=== PATIENT | female | born 1950 | race Caucasian/White ===

== ENCOUNTER 2019-02-20 09:56 | Emergency (ER) | payer MEDICARE, MEDICAID ==
[~2019-02-20] VITALS: Ht 175.3 cm; Wt 68.0 kg
[2019-02-20] MEDS ORDERED: Isovue-300 100ml vial INJ PRN (10:15)
[2019-02-20] MEDS ORDERED: LACTULOSE20 GM/301 ORAL (10:22)
[2019-02-20] MEDS ORDERED: LINZESS290 MCG PO (10:22)
[2019-02-20] MEDS ORDERED: COLACE100 MG ORAL (10:22)
[2019-02-20] MEDS ORDERED: HYDROCHLOROTH12.5 M2 ORAL (10:22)
[2019-02-20] MEDS ORDERED: ATORVASTATIN CA20 MG ORAL (10:22)
[2019-02-20] MEDS ORDERED: LISINOPRIL5 MG ORAL (10:22)
[2019-02-20] MEDS ORDERED: ASPIRIN81 MG ORAL (10:22)
--- NOTE | 2019-02-20 10:27 | NUR ---
ED Nurse Note: pt walked in c/o balck tarry loose all for 3 months. urine sent
[2019-02-20 10:29] VITALS: BP 160/80
[2019-02-20 10:36] LABS: APPEARANCE,URINE CLEAR; BILIRUBIN, URINE NEGATIVE (NEGATIVE); COLOR,URINE PALE YELLOW; GLUCOSE, URINE (UA) NEGATIVE (NEGATIVE); KETONES,URINE NEGATIVE (NEGATIVE); LEUKOCYTE ESTERASE ,URINE 1+ (NEGATIVE); NITRITE,URINE NEGATIVE (NEGATIVE); PH,URINE 6 (4.5-8.0); PROTEIN,URINE 1+ (NEGATIVE); UROBILINOGEN,URINE NORMAL MG/DL (0.0-1.0)
--- NOTE | 2019-02-20 10:41 | NUR ---
ED Nurse Note: blood sent ivf up infusing pt on monitor awaiting imaging.
--- NOTE | 2019-02-20 10:47 | NUR ---
ED Nurse Note: blood sent to lab
[2019-02-20 10:55] LABS: BASOPHILS % (AUTO) 1.3 % (0.0-2.0); EOSINOPHILS % (AUTO) 2.5 % (0.0-3.0); HEMATOCRIT 48.4 % (37.0-47.0); HEMOGLOBIN 16.6 G/DL (12.0-16.0); LYMPHOCYTES % (AUTO) 28.1 % (20.0-45.0); MEAN CORPUSCULAR VOLUME 92 FL (80-99); MONOCYTES % (AUTO) 6.4 % (1.0-10.0); NEUTROPHILS % (AUTO) 61.7 % (45.0-75.0); PLATELET COUNT 353 K/UL (150-450); RED BLOOD COUNT 5.26 M/UL (4.20-5.40); RED CELL DISTRIBUTION WIDTH 11.9 % (11.6-14.8); WHITE BLOOD COUNT 11.5 K/UL (4.8-10.8)
[2019-02-20 11:03] LABS: ANION GAP 7 mmol/L (5-15); BLOOD UREA NITROGEN 8 mg/dL (7-18); CALCIUM 9.6 MG/DL (8.5-10.1); CARBON DIOXIDE 29 MMOL/L (21-32); CHLORIDE 97 MMOL/L (98-107); CREATININE 0.7 MG/DL (0.55-1.30); POTASSIUM 3.5 MMOL/L (3.5-5.1); SODIUM 133 MMOL/L (136-145)
[2019-02-20 11:06] LABS: ALANINE AMINOTRANSFERASE 21 U/L (12-78); ALBUMIN 3.5 G/DL (3.4-5.0); ASPARTATE AMINO TRANSFERASE 16 U/L (15-37); INR 0.9 (0.9-1.1)
[2019-02-20 11:19] LABS: ALKALINE PHOSPHATASE 69 U/L (46-116); BILIRUBIN,TOTAL 0.3 MG/DL (0.2-1.0)
[2019-02-20 11:20] LABS: ALBUMIN/GLOBULIN RATIO 0.9 (1.0-2.7)
[2019-02-20] MEDS ORDERED: Albuterol ud Inhalation HHN ONE (11:30)
[2019-02-20] MEDS ORDERED: Ipratropium 0.02% Inh Soln 2.5ml UD HHN ONE (11:30)
--- NOTE | 2019-02-20 12:27 | Diagnostic Imaging Report ---
Clinical Indication: Lower abdominal pain x4 months Technique: No oral contrast utilized, per emergency room physician request IV administration nonionic contrast. Venous phase spiral acquisition obtained through the abdomen and pelvis. Multiplanar reconstructions were generated. Total dose length product 780.18 mGycm. CTDIvol(s) 16.82 mGy. Dose reduction achieved using automated exposure control Comparison: none Findings: Lack of enteric contrast limits assessment of the GI tract. The appendix is normal. There is distal colonic diverticulosis. No evidence of diverticulitis. No small bowel distention. No free or loculated intraperitoneal gas or fluid is evident. Distal esophagus, stomach, duodenum are unremarkable. The liver, gallbladder, bile ducts, pancreas, spleen, adrenals are unremarkable. There is a right interpolar region calyceal calculus demonstrated, measures 5 mm diameter. There is mild right hydronephrosis and mild ectasia of the right ureter. However, no ureteral calculus is demonstrated. No bladder calculi are demonstrated. A 4 mm calculus is seen in the left upper pole collecting system. No left ureteral calculi or hydronephrosis demonstrated. There is a subcentimeter low-attenuation lesion in the left kidney which is too small to characterize, most likely benign simple cyst. The bladder is unremarkable. No pelvic mass or adenopathy. The uterus and adnexal structures appear unremarkable. The included lung bases demonstrate a 5 mm subpleural nodule projecting just above the dome of the right hemidiaphragm. The bones demonstrate degenerative spondylosis changes. There is very slight infiltration of the subcutaneous fat of the left hip/buttock region and slight edema of the bilateral buttock subcutaneous fat Impression: Mild right hydronephrosis and hydroureter, without definite obstructive lesion. Presence of a right renal calyceal calculus raises possibility that this is due to recent stone passage, but other etiologies possible. Correlate with clinical findings Nonobstructive left renal calculus demonstrated as well Limited assessment of the GI tract, due to lack of enteric contrast demonstration. No definite acute GI tract process Other findings as noted, including slight edema of the bilateral buttock subcutaneous fat and infiltration of the left hip region subcutaneous fat, degenerative spondylosis, right basilar subpleural nodule The CT scanner at [facility] is accredited by the [employer] and the scans are performed using protocols designed to limit radiation exposure to as low as reasonably achievable to attain images of sufficient resolution adequate for diagnostic evaluation.
--- NOTE | 2019-02-20 13:13 | Emergency Room Report ---
History of Present Illness General Chief Complaint: Abdominal Pain Source: Patient Present Illness HPI Patient states that for the past 4 months she has had ongoing constipation and intermittent abdominal pain. She states she is on a laxative from her primary physician. She states that she was developing diarrhea. She states that the pain and constipation has been persistent for the use past 4 months although she does have times of relief. She was concerned that her stool was dark in color especially whenever it is diarrhea. She denies nausea or vomiting. She denies fever chills. She denies dysuria or hematuria. She has no other complaints. Allergies: Coded Allergies: No Known Allergies (Unverified , 02/20/19) Patient History Past Medical History: see triage record, HTN, COPD Social History: Reports: smoking; Denies: alcohol use, drug use Reviewed Nursing Documentation: PMH: Agreed; PSxH: Agreed Nursing Documentation-PMH Past Medical History: No History, Except For Hx Hypertension: Yes Hx COPD: Yes Hx Gastrointestinal Problems: Yes - chronic constipation Review of Systems All Other Systems: negative except mentioned in HPI Physical Exam Vital Signs Date Time Temp Pulse Resp B/P (MAP) Pulse Ox O2 Delivery O2 Flow Rate FiO2 02/20/19 10:03 98.1 89 20 160/80 (106) 90 Room Air 02/20/19 12:34 21 Sp02 EP Interpretation: reviewed, normal General Appearance: no apparent distress, alert, GCS 15, non-toxic Head: normocephalic, atraumatic Eyes: bilateral eye normal inspection, bilateral eye PERRL ENT: hearing grossly normal, normal pharynx, no angioedema, normal voice Neck: full range of motion, supple/symm/no masses Respiratory: chest non-tender, lungs clear, normal breath sounds, no respiratory distress, no retraction, no accessory muscle use, speaking full sentences Cardiovascular #1: regular rate, rhythm, no edema Gastrointestinal: normal bowel sounds, soft, non-distended, no guarding, no rebound, tenderness - TTP in the L. abdomen. Rectal: deferred Musculoskeletal: back normal, gait/station normal, normal range of motion, non- tender Neurologic: alert, oriented x3, responsive, motor strength/tone normal, sensory intact, speech normal Psychiatric: judgement/insight normal, memory normal, mood/affect normal, no suicidal/homicidal ideation Medical Decision Making Diagnostic Impression: Primary Impression: COPD exacerbation Additional Impressions: Abdominal pain Passed kidney stone ER Course This patient had presented with abdominal pain. However, on exam she was wheezing and tachypneic. She has a history of tobacco use and COPD. She was treated with albuterol, Atrovent and prednisone and had significant relief of her symptoms. She was pain free at the time of discharge. I did obtain a CT of the abdomen and pelvis and there was findings that the patient may have passed a kidney stone recently. There was mild hydronephrosis and hydroureter in the region of her described pain. Patient's laboratory work-up was unremarkable. I will treat the patient with a course of prednisone for her COPD exacerbation. The patient requested to go home and felt much better and had significant improvement in her lung exam I felt that this was appropriate. The patient is given close return precautions and follow-up instructions. Laboratory Tests Test 02/20/19 10:20 02/20/19 10:37 Urine Color Pale yellow Urine Appearance Clear Urine pH 6 (4.5-8.0) Urine Specific [place] 1.015 (1.005-1.035) Urine Protein 1+ (NEGATIVE) H Urine Glucose (UA) Negative (NEGATIVE) Urine Ketones Negative (NEGATIVE) Urine Blood Negative (NEGATIVE) Urine Nitrite Negative (NEGATIVE) Urine Bilirubin Negative (NEGATIVE) Urine Urobilinogen Normal MG/DL (0.0-1.0) Urine Leukocyte Esterase 1+ (NEGATIVE) H Urine RBC 0 /HPF (0 - 2) Urine WBC 0-2 /HPF (0 - 2) Urine Squamous Epithelial Cells Few /LPF (NONE/OCC) Urine Bacteria Occasional /HPF (NONE) White Blood Count 11.5 K/UL (4.8-10.8) H Red Blood Count 5.26 M/UL (4.20-5.40) Hemoglobin 16.6 G/DL (12.0-16.0) H Hematocrit 48.4 % (37.0-47.0) H Mean Corpuscular Volume 92 FL (80-99) Mean Corpuscular Hemoglobin 31.5 PG (27.0-31.0) H Mean Corpuscular Hemoglobin Concent 34.3 G/DL (32.0-36.0) Red Cell Distribution Width 11.9 % (11.6-14.8) Platelet Count 353 K/UL (150-450) Mean Platelet Volume 4.9 FL (6.5-10.1) L Neutrophils (%) (Auto) 61.7 % (45.0-75.0) Lymphocytes (%) (Auto) 28.1 % (20.0-45.0) Monocytes (%) (Auto) 6.4 % (1.0-10.0) Eosinophils (%) (Auto) 2.5 % (0.0-3.0) Basophils (%) (Auto) 1.3 % (0.0-2.0) Prothrombin Time 9.8 SEC (9.30-11.50) Prothrombin Time INR 0.9 (0.9-1.1) PTT 28 SEC (23-33) Sodium Level 133 MMOL/L (136-145) L Potassium Level 3.5 MMOL/L (3.5-5.1) Chloride Level 97 MMOL/L (98-107) L Carbon Dioxide Level 29 MMOL/L (21-32) Anion Gap 7 mmol/L (5-15) Blood Urea Nitrogen 8 mg/dL (7-18) Creatinine 0.7 MG/DL (0.55-1.30) Estimate Glomerular Filtration Rate > 60 mL/min (>60) Glucose Level 114 MG/DL (74-106) H Calcium Level 9.6 MG/DL (8.5-10.1) Total Bilirubin 0.3 MG/DL (0.2-1.0) Aspartate Amino Transferase (AST) 16 U/L (15-37) Alanine Aminotransferase (ALT) 21 U/L (12-78) Alkaline Phosphatase 69 U/L (46-116) Total Protein 7.2 G/DL (6.4-8.2) Albumin 3.5 G/DL (3.4-5.0) Globulin 3.7 g/dL Albumin/Globulin Ratio 0.9 (1.0-2.7) L Lipase 136 U/L (73-393) CT/MRI/US Diagnostic Results CT/MRI/US Diagnostic Results : Imaging Test Ordered: CT abd/pelvis Impression Impression: Mild right hydronephrosis and hydroureter, without definite obstructive lesion. Presence of a right renal calyceal calculus raises possibility that this is due to recent stone passage, but other etiologies possible. Correlate with clinical findings Nonobstructive left renal calculus demonstrated as well Limited assessment of the GI tract, due to lack of enteric contrast demonstration. No definite acute GI tract process Other findings as noted, including slight edema of the bilateral buttock subcutaneous fat and infiltration of the left hip region subcutaneous fat, degenerative spondylosis, right basilar subpleural nodule Last Vital Signs Date Time Temp Pulse Resp B/P (MAP) Pulse Ox O2 Delivery O2 Flow Rate FiO2 02/20/19 13:05 87 20 97 Room Air 21 02/20/19 10:29 98.1 160/80 Status: improved Disposition: HOME, SELF-CARE Condition: Improved Referrals: [facility] (PCP) Patient Instructions: Abdominal Pain, Adult Milka Jimenez DO Feb 20, 2019 13:13
[2019-02-20 13:15] VITALS: BP 124/65
--- NOTE | 2019-02-20 13:17 | NUR ---
ED Nurse Note: pt ambulates to restroom with steady gait NAD vss tino monitor.
[2019-02-20] MEDS ORDERED: PREDNISONE20 MG ORAL (13:58)
[2019-02-20 14:00] VITALS: BP 122/65
--- NOTE | 2019-02-20 15:31 | NUR ---
ED Nurse Note: Pt cleared by health care Provider for discharge. DC instructions/prescription was given and explained to pt and verbalized understanding of teachings. All medical deviecs such as ID band removed. Pt is AAO x4, ambulatory and left with all personal belongings.
== END 2019-02-20 14:00 | disposition home or self-care (01) ==
LOC: EMR 10:42
DX: N13.30 Unspecified hydronephrosis (principal); N20.0 Calculus of kidney; Z87.442 Personal history of urinary calculi; J44.1 Chronic obstructive pulmonary disease with (acute) exacerbation; R10.9 Unspecified abdominal pain; I10 Essential (primary) hypertension; K59.09 Other constipation; F17.200 Nicotine dependence, unspecified, uncomplicated
CPT/HCPCS: 36415; 74177; 80053; 81003; 83690; 85025; 85610; 85730; 94640; 94664; 96360; 99284; J7512; Q9967